=== PATIENT | female | born 1965 | race Caucasian/White ===

== ENCOUNTER 2022-02-04 15:05 | Emergency (ER) | payer OTHER, SELFPAY ==
[2022-02-04] VITALS (16 sets, daily range): BP systolic 125–145; BP diastolic 76–93; PULSE 63–93; RESP 10–23; TEMP 36.5; O2SAT 97–100
--- NOTE | ~2022-02-04 | CT_ITS ---
EXAMINATION: CTA chest PE protocol DATE: 02/04/2022 18:40 INDICATION: dyspnea and chest pain TECHNIQUE: Computed tomography angiography (CTA) of the chest was performed with 100 mL Omnipaque-350 intravenous contrast timed to evaluate the pulmonary arteries. Coronal maximum intensity projection 3D-reconstructions were created by the technologist. The dose-length product (DLP) was 298.65 mGy-cm. Automated exposure control and iterative reconstruction technique were employed. COMPARISON: 02/19/2013, x-ray chest 02/04/2022. FINDINGS: Lung parenchyma and airways: Mild dependent atelectasis. Pleura: Unremarkable. Thoracic inlet, axillae and chest wall: Bilateral breast augmentation, otherwise unremarkable. Thoracic aorta: Normal. Mediastinum: Normal. Heart and pericardium: Normal. Coronary artery calcifications: None. Upper abdomen: No significant finding. Bones: No acute osseous finding. Pulmonary arteries: Study quality: Adequate. No pulmonary emboli detected. IMPRESSION: No CT evidence of acute pulmonary embolus. Reviewed, dictated and finalized at location K.
--- NOTE | ~2022-02-04 | XR_ITS ---
EXAMINATION: XR chest 2V Exam Date/Time: 02/04/2022 16:27 CDT HISTORY: chest pain Comparison: 09/13/2010. RESULT: Lines, tubes, and devices: Cholecystectomy clips. Partially visualized cervical fusion hardware. Lungs and pleura: Clear. Cardiomediastinal silhouette: Stable. Other: No acute osseous or upper abdominal finding. Thoracic scoliosis. IMPRESSION: No acute cardiopulmonary process. Reviewed, dictated and finalized at location K.
--- NOTE | 2022-02-04 15:07 | ECG_ITS ---
Measurements Intervals [place] Rate: 77 P: 26 MD: 156 QRS: -14 QRSD: 81 T: 17 QT: 380 QTc: 431 Interpretive Statements SINUS RHYTHM POSSIBLE LEFT ATRIAL ENLARGEMENT POSSIBLE LEFT VENTRICULAR HYPERTROPHY BORDERLINE ECG NO PREVIOUS ECG AVAILABLE FOR COMPARISON Electronically Signed On 02-04-2022 16:38:36 CDT by Sheldon Delgadillo M.D.
[2022-02-04 15:22] LABS: Basophils Percent Auto 0.6 % (0.2-1.2); Eosinophils Absolute Auto 0.1 K/mm3 (0-0.3); Eosinophils Percent Auto 1.3 % (0-4.4); Hematocrit 41.1 % (37.0-47.0); Hemoglobin 13.1 g/dL (12.0-15.0); Immature Granulocyte Absolute 0.01 K/mm3 (0.00-0.031); Immature Granulocyte Percent A 0.2 % (0-0.5); Lymphocytes Absolute Auto 1.81 K/mm3 (0.9-3.2); Mean Corpuscular HGB Conc 31.9 g/dl (32-36); Mean Corpuscular Hemoglobin 30.5 pg (26-34); Mean Corpuscular Volume 95.6 fl (80-100); Mean Platelet Volume 9.6 fl (7.4-10.4); Monocytes Absolute Auto 0.4 K/mm3 (0.1-0.6); Monocytes Percent Auto 6.8 % (2.6-8.5); Neutrophils Absolute Auto 3.1 K/mm3 (1.3-6.7); Neutrophils Percent Auto 57.1 % (45.5-73.1); Platelet Count Result 253 k/mm3 (150-375); Red Cell Distribution Width 13.5 % (11.5-14.5); White Blood Count 5.3 K/mm3 (4.5-10.0)
[2022-02-04 15:36] LABS: Alanine Aminotransferase 25 U/L (6-35); Albumin Level 4.8 g/dL (3.5-5.1); Alkaline Phosphatase 67 U/L (38-126); Anion Gap 9 mmol/L (8-16); Aspartate Amino Transferase 30 U/L (14-36); Bilirubin,Total 0.4 mg/dL (0.2-1.3); Blood Urea Nitrogen 17 mg/dL (7-17); Calcium 9.7 mg/dL (8.4-10.2); Carbon Dioxide 28 mmol/L (22-30); Chloride 102 mmol/L (98-107); Estimated CRCL calculation 67 ml/min; Estimated Glomerular Filt Rate > 60; Glucose 102 mg/dL (65-110); Lipase 106 U/L (23-300); Potassium 4.3 mmol/L (3.4-5.0); Prothrombin Time 13.2 Seconds (11.1-14.7); Sodium 139 mmol/L (137-145)
[2022-02-04 15:37] LABS: Partial Thromboplastin Time 26.4 SECONDS (22.3-36.8)
[2022-02-04 15:47] LABS: Troponin I < 0.012 ng/mL (0.000-0.034)
[2022-02-04] MEDS: ASPIRIN 81 MG CHEWABLE TABLET 324 MG PO (16:56)
--- NOTE | 2022-02-04 17:02 | PC.NURSE ---
called lab and talked to Jim at 1702 to add on a D dimer
--- NOTE | 2022-02-04 17:18 | ED.CHESTPAIN ---
HPI - Chest Pain General Chief Complaint: Chest Pain Stated Complaint: chest pain Time Seen by Provider: 02/04/22 16:51 Source: RN notes reviewed History of Present Illness HPI narrative: Patient presents emergency room from home for chest pain. Patient states she has been having pain over the left side of the chest for approximately 2 weeks. States the pain is always constantly there but does wax and wane in intensity states that has been present since she had COVID 2 weeks ago. Patient states the pain is described as sharp and stabbing nothing seems to make the pain better or worse she does note a mild feeling of short of breath with it and describes that shortness of breath has not been able to take a full breath she denies any fevers or chills abdominal pain nausea vomiting or any other symptoms denies any previous cardiac history Related Data Home Medications Medication Instructions Recorded Confirmed alprazolam 0.25 mg disintegrating 0.25 mg PO DAILY 12/05/21 01/30/22 tablet diclofenac sodium 75 mg 75 mg PO BID 12/05/21 01/30/22 tablet,delayed release sertraline 50 mg tablet (Zoloft) 50 mg PO DAILY 12/05/21 01/30/22 Allergies Allergy/AdvReac Type Severity Reaction Status Date / Time No Known Allergies Allergy Unknown Unverified 02/04/22 16:55 Review of Systems Review of Systems: Gen.: Denies fevers or chills ENT: Denies congestion Respiratory: reports shortness of breath CV: Reports chest pain GI: Denies abdominal pain nausea, emesis or diarrhea Musculoskeletal: Denies back pain or muscle pain Neuro: Denies numbness, tingling, weakness or focal weakness Skin: Denies rash Except as documented, all other systems reviewed and negative [facility] Past Medical History Medical History Anxiety Depression IBS (irritable bowel syndrome) Screening mammogram, encounter for Surgical History Surgical History H/O breast surgery History of cholecystectomy History of gastrointestinal surgery 8-10in colon removed History of neck surgery 8-Neck Discectomy History of orthopedic surgery History of orthopedic surgery History of tonsillectomy S/P laparoscopic supracervical hysterectomy Family History Family History Other Acute myocardial infarction Depressive disorder Diabetes mellitus Heart disease Malignant neoplasm of liver Pulmonary emphysema Social History Social History Smoking status: Never smoker Alcohol intake: current Drinks per week: 2 Substance use: never Substance use type: does not use Additional living arrangements comments: 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 CARDIOVASCULAR: Regular rate and rhythm without murmurs rubs or gallops. Chest: Tender to palpation with point tenderness over the left anterior chest wall and regions of ribs 6 through 8 just to the left of the sternum ABDOMINAL: Soft, nontender, nondistended, no rebound or guarding MUSCULOSKELETAl: Moves all extremities. No clubbing, cyanosis or edema. NEURO: Awake and alert. Following commands, speech normal, no focal deficits SKIN:: Warm, dry. No rashes lesions or abrasions PSYCHIATRIC: Normal affect/mood, Course Course Emergency Course: Discussed with patient results of workup and diagnosis. Discussed need for follow-up with primary care, proper use of medication, and reasons to return to the emergency de
[2022-02-04 18:01] LABS: D Dimer 0.92 ug/mL (<0.48)
[2022-02-04 18:41] LABS: Troponin I < 0.012 ng/mL (0.000-0.034)
[2022-02-04] MEDS: KETOROLAC 30 MG/ML VIAL (*BKC) IV PUSH (18:53)
== END 2022-02-04 19:26 | disposition home or self-care (01) ==
PROVIDERS: Emergency Medicine; Emergency Provider Emergency Medicine; PCP Physician Assistant
DX: R07.89 Other chest pain (principal); F41.9 Anxiety disorder, unspecified; F32.9 Major depressive disorder, single episode, unspecified
CPT/HCPCS: 36415; 71046; 71275; 80053; 83690; 84484; 85025; 85380; 85610; 85730; 93005; 96374; 99284; A9270; J1885; Q9967

== ENCOUNTER 2022-05-15 08:30 | Outpatient (CLI) | payer OTHER, SELFPAY ==
--- NOTE | ~2022-05-15 | XR_ITS ---
EXAMINATION: XR chest 2V 05/15/2022 08:57 INDICATION: Cough and cold symptoms PROCEDURE: 2 view chest COMPARISON: 02/04/2022 FINDINGS: The lungs are clear. The cardiomediastinal silhouette is within normal limits. There are no pleural effusions. There is no pneumothorax suspected. There is dextroscoliosis of the thoracic spine. There are cholecystectomy clips. IMPRESSION: 1: NO ACUTE CARDIOPULMONARY DISEASE. Reviewed, dictated and finalized at location A. OR TECHNICIAN
== END 2022-05-15 08:31 | disposition home or self-care (01) ==
PROVIDERS: PCP Physician Assistant; Visit Provider Physician Assistant
DX: R05.9 Cough, unspecified (principal)
CPT/HCPCS: 71046

== ENCOUNTER 2023-03-18 15:28 | Emergency (ER) | payer OTHER, SELFPAY ==
[2023-03-18 15:39] VITALS: BP 142/79; PULSE 81; RESP 18; TEMP 36; O2SAT 100
--- NOTE | 2023-03-18 17:03 | ED.HA ---
HPI - Headache General Chief Complaint: Headache Stated Complaint: migraine, vision changes Time Seen by Provider: 03/18/23 16:32 History of Present Illness HPI Narrative: Patient is a 57-year-old female with a history of migraines presenting with a migraine. Patient states that she has had a migraine for the last week and her home medications have not been helping. States that her neurologist started her on a seizure medication yesterday to help but she is only taken 1 dose on her migraine has continued. States that it feels typical of her migraines. Reports photosensitivity. No numbness or weakness, fevers, neck pain or stiffness. Reports mild nausea but no vomiting. Denies further complaints. Related Data Home Medications Medication Instructions Recorded Confirmed alprazolam 0.25 mg disintegrating 0.25 mg PO DAILY 12/05/21 02/12/23 tablet famotidine 20 mg tablet mg PO DAILY 12/16/22 02/12/23 pregabalin 50 mg capsule (Lyrica) 50 mg PO BID 12/16/22 02/12/23 Allergies Allergy/AdvReac Type Severity Reaction Status Date / Time No Known Allergies Allergy Unknown Verified 02/12/23 16:39 Review of Systems Review of Systems: All systems reviewed & are unremarkable except as noted in HPI and below PMFSH Past Medical History Medical History Anxiety Depression IBS (irritable bowel syndrome) Screening mammogram, encounter for Surgical History Surgical History H/O breast surgery History of cholecystectomy History of gastrointestinal surgery 8-10in colon removed History of neck surgery 8-Neck Discectomy History of orthopedic surgery History of orthopedic surgery History of tonsillectomy S/P laparoscopic supracervical hysterectomy Family History Family History Other Acute myocardial infarction Depressive disorder Diabetes mellitus Heart disease Malignant neoplasm of liver Pulmonary emphysema Social History Social History Smoking status: Never smoker Alcohol intake: current Drinks per week: 2 Substance use: never Substance use type: does not use Lack of Transportation: No Lack of Food: Never True Current Housing: I Do Not Have Housing Concerned About Future Housing: No Difficulty Paying Gas/Electric Bills: No Difficulty Paying for Meds: No Currently Unemployed: No Education: Associate Degree Difficulty w/ Childcare or Family Care: No Living arrangements: other Additional living arrangements comments: Occupation/Education: occupation 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 EYES: PERRLA and EOMI. ENT: grossly unremarkable NECK: Supple. CHEST: No respiratory distress. HEART: Regular rate and rhythm. ABDOMEN: Soft, nontender, nondistended EXTREMITIES: Normal range of motion. No edema. SKIN: Warm, dry, no rash. NEURO: No focal deficits. Alert and oriented x3. PSYCH: Normal mood and affect. Course Vital Signs Vital signs: Vital Signs Temperature 96.8 F L 03/18/23 15:39 Pulse Rate 81 03/18/23 15:39 Respiratory Rate 18 03/18/23 15:39 Blood Pressure 142/79 H 03/18/23 15:39 Pulse Oximetry 100 03/18/23 15:39 Oxygen Delivery Room Air 03/18/23 15:39 Temperature 98.0 F 03/18/23 19:02 Pulse Rate 80 03/18/23 19:22 Respiratory Rate 14 03/18/23 19:22 Blood Pressure 129/82 03/18/23 19:22 Pulse Oximetry 94 03/18/23 19:22 Oxygen Delivery Room Air 03/18/23 15:39 MDM - Headache MDM Narrative Medical
[2023-03-18] MEDS: KETOROLAC 30 MG/ML VIAL (*BKC) IV PUSH (18:05)
[2023-03-18] MEDS: SODIUM CHLORIDE 0.9% IV 1,000 ML 999 ML IV CONT (18:05)
[2023-03-18] MEDS: PROCHLORPERAZINE EDISYLATE 10 MG/2 ML VIAL IV PUSH (18:06)
[2023-03-18] MEDS: diphenhydrAMINE HCl INJ 50 MG/ML VIAL IV PUSH (18:07)
[2023-03-18 19:02] VITALS: BP 135/83; PULSE 74; RESP 16; TEMP 36.7; O2SAT 100
[2023-03-18] MEDS: LORazepam INJ (*CRX) 2 MG/ML VIAL 1 MG IV PUSH (19:04)
[2023-03-18 19:22] VITALS: BP 129/82; PULSE 80; RESP 14; O2SAT 94
== END 2023-03-18 20:50 | disposition home or self-care (01) ==
PROVIDERS: Emergency Provider Emergency Medicine; PCP Physician Assistant
DX: G43.909 Migraine, unspecified, not intractable, without status migrainosus (principal); K58.9 Irritable bowel syndrome, unspecified; F41.9 Anxiety disorder, unspecified; F32.A Depression, unspecified; Z90.49 Acquired absence of other specified parts of digestive tract; Z90.710 Acquired absence of both cervix and uterus
CPT/HCPCS: 96361; 96374; 96375; 99284; J0780; J1200; J1885; J2060; J7030